=== PATIENT | female | born 1985 | race Caucasian/White ===

== ENCOUNTER 2016-08-10 16:33 | Emergency (ER) | payer MEDICAID ==
[~2016-08-10] VITALS: Ht 160 cm; Wt 129.7 kg
[~2016-08-10 16:33] MED LIST: AC500T PO; ACHD5005 PO; BACL10TA PO; CHRO1TAB7 PO; CITA10TA PO; CLN150C1RX PO; CODE-54 PO; DIAZ5TAB3 PO; DOXY100C2 PO; DULO30CA PO; GABA100T PO; HYDR1TAB PO; IBP800T PO; LORA1TAB PO; METH500T7 PO; MULT-608 PO; NAPR-243 PO; OMEP-10 PO; PRD20T PO; PREN1TAB39 PO; PRM25T PO; SILV25CR TP; SULF1TAB38 PO; SULI200T4 PO; Z-PACK
[2016-08-10] MEDS ORDERED: AMPH15TA PO (16:56)
[2016-08-10] MEDS ORDERED: FLUO40CA12 PO (16:56)
[2016-08-10] MEDS ORDERED: DCCL10A2 IM (16:56)
[2016-08-10] MEDS ORDERED: FLUO20CA42 PO (16:56)
--- NOTE | 2016-08-10 17:23 | Diagnostic Imaging Report ---
INDICATION: Going downstairs and bent toes backwards. Pain. TECHNIQUE: 3 views of the left foot. CORRELATION STUDY: None FINDINGS: The osseous structures of the foot are intact. Joint space is maintained. Alignment anatomic. Tiny calcaneal spur. There is some soft tissue swelling suggested about the distal aspect of the foot. IMPRESSION: 1. Negative for acute findings of the foot. Dictated by: Dictated on workstation # [id number]
--- NOTE | 2016-08-10 17:34 | ED Fall/Injury ---
General Chief Complaint: General Problems/Pain Stated Complaint: L FOOT PAIN Nursing Triage Note: pt states she fell off the stairs and all her weight went onto her left foot. approx 1530 today. Source: patient Exam Limitations: no limitations History of Present Illness Time seen by provider: 16:53 Initial Comments This patient presents to the emergency room with left foot injury. She stumbled on her steps resulting in a hyper dorsiflexion of the left foot. She now complains of pain on the dorsum of the foot and difficulty with ambulation. She has a bruise to the right forearm with no function reduction. She denies any other significant injuries. The incident happened about 15:30. Allergies and Home Medications Allergies Coded Allergies: Cyclobenzaprine (Unverified Allergy, Mild, REDNESS/ITCHING, PALPITATIONS, 09/28/09) aripiprazole (Verified Adverse Reaction, Mild, Anxiety, 08/18/12) Home Medications Dextroamphetamine/Amphetamine 15 Mg Tablet, 15 MG PO BID, (Reported) Dicyclomine HCl 20 Mg/2 Ml Inj, 20 MG IM BID, (Reported) Fluoxetine HCl 20 Mg Capsule, 20 MG PO, (Reported) Fluoxetine HCl 40 Mg Capsule, 40 MG PO, (Reported) Constitutional: no symptoms reported : No Musculoskeletal: see HPI Skin: see HPI Psychiatric/Neurological: No Symptoms Reported Past Wxnetri-Hzudsf-Umefrx Hx Patient Social History Alcohol Use: Denies Use Recreational Drug Use: No Smoking Status: Current Everyday Smoker Type Used: Cigarettes 2nd Hand Smoke Exposure: Yes Recent Foreign Travel: No Contact w/Someone Who Travel: No Recent Infectious Disease Expo: No Recent Hopitalizations: No Immunizations Up To Date Date of Influenza Vaccine: Feb 09, 2012 Seasonal Allergies Seasonal Allergies: Yes Surgeries HX Surgeries: Yes (TEAR DUCTS, RIGHT CARPAL TUNNEL) Respiratory Hx Respiratory Disorders: Yes Respiratory Disorders: Asthma Cardiovascular Hx Cardiac Disorders: Yes (heart murmur) Neurological Hx Neurological Disorders: Yes (fibromyalgia) Reproductive System Hx Reproductive Disorders: No Sexually Transmitted Disease: No HIV/AIDS: No Female Reproductive Disorders: Denies RN TELEPHONE TRIAGE History: Tubal Ligation Genitourinary Hx Genitourinary Disorders: No Gastrointestinal Hx Gastrointestinal Disorders: Yes Gastrointestinal Disorders: Gastroesophageal Reflux, Irritable Bowel Musculoskeletal Hx Musculoskeletal Disorders: Yes Musculoskeletal Disorders: Degenerate Disk Disease, Chronic Back Pain Endocrine Hx Endocrine Disorders: No HEENT HX ENT Disorders: No Cancer Hx Cancer: No Psychosocial Hx Psychiatric Problems: Yes Behavioral Health Disorders: ADD/ADHD, Anxiety, Bipolar, Depression Integumentary HX Skin/Integumentary Disorder: No Blood Transfusions Hx Blood Disorders: No Adverse Reaction to a Blood Tr: No Family Medical History Significant Family History: No Pertinent Family Hx Physical Exam Vital Signs Vital Sign - Last 12Hours 08/10/16 16:45 Temp 97.9 Pulse 72 Resp 20 B/P (MAP) 120/69 Pulse Ox 98 O2 Delivery Room Air Capillary Refill : Less Than 3 Seconds General Appearance: WD/WN, no apparent distress HEENT: normal ENT inspection Cardiovascular: regular rate, rhythm, no edema, no murmur Respiratory: lungs clear, normal breath sounds, no respiratory distress, no accessory muscle use Extremities: other (Ecchymosis of the right forearm. Tenderness over the dorsum of the left foot with subtle edema. Capillary refill, sensation, and movement intact in the toes. 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, no motor/sensory deficits, alert, normal mood/affect, oriented x 3 Skin: normal color, warm/dry, ecchymosis Saroj Coma Score Best Eye Response: (4) Open Spontaneously Best Verbal Response: (5) Oriented Best Motor Response: (6) Obeys Commands [place] Total: 15 Progress/Results/Core Measures Results/Orders My Orders Orders - BARBARA MARIE MD Foot, Left, 3 Views (08/10/16 17:00) Vital Signs/I&O Vital Sign - Last 12Hours 08/10/16 08/10/16 16:45 17:49 Temp 97.9 98.2 Pulse 72 88 Resp 20 18 B/P (MAP) 120/69 Pulse Ox 98 98 O2 Delivery Room Air Blood Pressure Mean: 86 Progress Note : Progress Note X-ray was unremarkable. Crutches were dispensed. Ryan wrap was applied. Discharge instructions reviewed. Diagnostic Imaging Diagonstic Imaging: Xray Plain Films/CT/US/NM/MRI: other (foot) Comments Foot x-ray viewed by me and report reviewed. See report below: NAME: BERTRAND PIERCE [facility] REC#: [id number] PT STATUS: REG ER : 1985 PHYSICIAN: BARBARA MARIE MD ADMIT DATE: 08/10/16/ER Draft Date of Exam:08/10/16 FOOT, LEFT, 3 VIEWS INDICATION: Going downstairs and bent toes backwards. Pain. TECHNIQUE: 3 views of the left foot. CORRELATION STUDY: None FINDINGS: The osseous structures of the foot are intact. Joint space is maintained. Alignment anatomic. Tiny calcaneal spur. There is some soft tissue swelling suggested about the distal aspect of the foot. IMPRESSION: 1. Negative for acute findings of the foot. Dictated on workstation # [id number] Dict: 08/10/16 1718 Trans: 08/10/16 1723 ELIZABETH [id number] Interpreted by: JALIL MCGINNIS DO Departure Impression Impression: Primary Impression: Sprain of foot Qualified Codes: S93.602A - Unspecified sprain of left foot, initial encounter Disposition: HOME, SELF-CARE Condition: Improved Departure-Patient Inst. Decision time for Depature: 17:30 Referrals: [facility] (PCP) Primary Care Physician MAGAN BRASHER APRN (Family) Primary Care Physician Patient Instructions: Sprain (DC) Add. Discharge Instructions: Rest, elevation on a soft surface, icing in 20 minute intervals, and compressive wrapping may help with pain and swelling. You may use ibuprofen up to 800 mg every 8 hours as needed for pain. Add Tylenol (acetaminophen) up to 1000 mg every 6 hours as needed for additional pain relief. Contact your doctor with any problems or concerns or if not healing as expected. Use your crutches as necessary. Gradually increase your level of activity as pain allows. All discharge instructions reviewed with patient and/or family. Voiced understanding. BARBARA MARIE MD August 10, 2016 17:34
[2016-08-10 17:49] VITALS: BP 120/82
== END 2016-08-10 17:49 | disposition home or self-care (01) ==
LOC: EDUNIT# 16:33 → ER 16:36
DX: S93.602A Unspecified sprain of left foot, initial encounter (principal); W10.9XXA Fall (on) (from) unspecified stairs and steps, initial encounter; Y99.8 Other external cause status
CPT/HCPCS: 73630; 99283

== ENCOUNTER → 2016-10-14 | Outpatient (CLI) | payer MEDICAID ==
[~2016-10-14] MED LIST changes: +AMPH15TA PO; +DCCL10A2 IM; +FLUO20CA42 PO; +FLUO40CA12 PO
== END ==
LOC: LAB 10:43
PROVIDERS: ATTEND Nurse Practitioner Family
DX: L50.9 Urticaria, unspecified (principal)
CPT/HCPCS: 36415; 86003

== ENCOUNTER 2017-04-12 09:14 | Outpatient (RCR) | payer MEDICAID | END 2017-04-18 09:10 | disposition home or self-care (01) | PROVIDERS: ATTEND Nurse Practitioner Family | DX: M54.5 Low back pain (principal) ==